=== PATIENT | male | born 1950 | race Asian ===

== ENCOUNTER 2024-10-01 08:33 | Inpatient (IN) | payer MEDICARE, BC ==
[~2024-10-01] VITALS: Ht 170.2 cm; Wt 78.9 kg
[2024-10-01] VITALS (7 sets, daily range): BP systolic 112–129; BP diastolic 72–80; PULSE 67–80; RESP 15–20; TEMP 97.9–98.4; O2SAT 95–99
--- NOTE | 2024-10-01 09:18 | ED.PDOC ---
History of Present Illness HPI Comments 73 y/o M, with a Hx of HTN and left-left lobectomy, presents with c/o right ankle pain and deformity w/associated limited range of motion s/p mechanical slip and fall injury, today. Patient endorses on injuring and "dislocating" his right ankle after slipping on a patch of ice, while attempting to enter his car, this morning. Patient admits to hearing a "snap" emanating from his right ankle and 1x failed attempt at trying to "put [his] ankle back into place." He reports pain whenever putting his weight on his right foot. He denies any prior injuries or symptoms before fall along with any additional pertinent or relevant Hx. He denies having any head or additional injuries, weakness, numbness, tingling, radiating pain, or other associated symptoms or modifiers at this time. Chief Complaint: Lower Extremity Time Seen by MD: 09:00 Reviewed Notes: Nurses Notes, Medications, Allergies Allergies: Coded Allergies: NO KNOWN ALLERGIES (Unverified , 10/01/24) Information Source: Patient Mode of Arrival: Wheelchair Severity: Moderate Timing: Hours Duration: Since onset Prehospital treatment: None Past Medical History PAST MEDICAL HISTORY: HTN Surgical History (Other): left lobectomy s/p lung lesion discovery Family History Family History: Unknown Social History Smoker: Non-Smoker Alcohol: Denies ETOH Use Drugs: Denies Drug Use Lives In: Home Musculoskeletal: reports: others (right ankle pain and deformity with associated limited range of motion ) All Other Systems: Reviewed and Negative (negative unless otherwise stated above or in HPI) Physical Exam General Appearance: Mild Distress, Moderate Distress HEENT: Normal ENT Inspection, PERRL/EOMI Neck: Full Range of Motion, Non-Tender, Normal, Normal Inspection Respiratory: Chest Non-Tender, Lungs Clear, No Accessory Muscle Use, No Respiratory Distress, Normal Breath Sounds Cardiovascular: No Edema, No JVD, No Murmur, No Gallop, Normal Peripheral Pulses, Regular Rate/Rhythm Breast Exam: Deferred Gastrointestinal: No Organomegaly, Non Tender, No Pulsatile Mass, Normal Bowel Sounds, Soft Genitalia: Deferred Pelvic: Deferred Rectal: Deferred Extremities: Decreased range of motion, No pedal edema, Swelling, Tender Musculoskeletal : Location: Right Extremity Location: Ankle Apperance: Swelling, Deformity, Limited ROM, Tenderness: Moderate Neurologic: Alert, habilitative interventionist II-XII nml as Tested, No Motor Deficits, Normal Affect, Normal Mood, No Sensory Deficits Cerebellar Function: Normal Reflexes: Normal Skin: Dry, Normal Color, Warm Peripheral Pulses: 1+ carotid (R), 1+ carotid (L) Lymphatic: No Adenopathy Was a procedure done? Was a procedure done?: No Differential Dx Considerations may include: dislocation, fracture, contusion, bruising, sprain, musculoskeletal pain X-Ray, Labs, Meds, VS Vital Signs Date Time Temp Pulse Resp B/P (MAP) Pulse Ox O2 Delivery O2 Flow Rate FiO2 10/01/24 08:53 98.6 82 18 140/72 (94) 98 X-Ray, Labs, Meds, VS Comment Course in the emergency department eventful patient slipped and fell and heard a crack and showed that his ankle was displaced so he reduced himself The x-ray shows bile duct malleolar fracture with a subluxation The orthopedics has been consulted and patient may go to surgery soon Time of 1ST Reevaluation: 09:30 Reevaluation 1ST: Unchanged Patient Education/Counseling: Diagnosis, Treatment Family Education/Counseling: No Family Present Departure 1 Departure Time of Disposition: 09:29 Impression: Primary Impression: Fracture dislocation of right ankle Qualified Codes: S82.891A - Other fracture of right lower leg, initial encounter for closed fracture Additional Impression: Bimalleolar fracture of right ankle Qualified Codes: S82.841A - Displaced bimalleolar fracture of right lower leg, initial encounter for closed fracture Disposition: ADMITTED INPATIENT Admit to: Med Surg Condition: Serious Critical Care Note Critical Care Time?: No Stability Stability form required: Yes Comments Patient admitted by orthopedist for repair ankle fracture Heart Score Heart Score: Heart Score Response (Comments) Value History N/A 0 EKG N/A 0 Age >65 2 Risk Factors No known risk factors 0 Troponin N/A 0 Total 2 I personally scribed for PIERRE BOWDEN MD ([email or web address]) on 10/01/24 at 09:18. Electronically submitted by Raghavendra Persaud ([email or web address]). PIERRE BOWDEN MD Oct 01, 2024 09:18
--- NOTE | 2024-10-01 09:37 | DVH ---
CLINICAL INDICATION: fx dislocation TECHNIQUE: XY R ANKLE 3 VIEW Comparison: None FINDINGS/IMPRESSION: Displaced lateral malleolus and medial malleolus fractures with overlying soft tissue swelling. Moder ate joint effusion is present.
[2024-10-01] MEDS ORDERED: HYDROcodone-ACET 5/325MG TAB PO PRN (09:45)
[2024-10-01] MEDS ORDERED: MORPHINE SULFATE 4 MG/ML SYR/VIAL IV ONE (09:45)
[2024-10-01] MEDS ORDERED: ONDANSETRON HCL 4 MG/2 ML VIAL IV ONE (09:45)
[2024-10-01] MEDS ORDERED: TEMAZEPAM 15 MG CAP PO PRN (09:45)
[2024-10-01] MEDS ORDERED: MAALOX PLUS or MAALOX 30 ML PO PRN (09:45)
[2024-10-01] MEDS ORDERED: SODIUM CHLORIDE 0.9% 1,000 ML IV ONE (09:45)
--- NOTE | 2024-10-01 09:50 | DVHHP2 ---
History of Present Illness Reason for Visit: RIGHT ANKLE FRACTURE History of Present Illness Patient is a 73 year-old M with a PMhx of HTN and left lobectomy (5 years ago) who slipped and fell in his driveway this morning. Patient was complaining of pain 8/10 initially. Denies any head injury, LOC, or Hip or Pelvic pain. Patient landed on his right ankle, he reports he tried to manipulate it back in place then came to the ED. Patient seen and examined at bedside3, Ortho consult was done in the ED. Patient will be admitted for Right Ankle Surgery. Past Medical History See HPI Review of Systems Constitutional: No: Fever, Chills, Sweats, Weakness, Malaise, Other Eyes: No: Pain, Vision change, Conjunctivae inflammation, Eyelid inflammation, Other, Redness ENT: No: Ear pain, Ear discharge, Nose pain, Nose discharge, Nose congestion, Mouth pain, Mouth swelling, Throat pain, Throat swelling, Other Respiratory: No: Cough, Dry, Shortness of breath, SOB with excertion, Wheezing, Hemoptysis, Pleuritic Pain, Sputum, Wheezing, Other Cardiovascular: No: Chest Pain, Palpitations, Orthopnea, Paroxysmal Noc. Dyspnea, Edema, Lt Headedness, Other Gastrointestinal: No: Nausea, Vomiting, Abdominal Pain, Diarrhea, Constipation, Melena, Hematochezia, Other Genitourinary: No Dysuria, No Frequency, No Incontinence, No Hematuria, No Retention, No Other Musculoskeletal: leg pain, foot pain Skin: No: Rash, Lesions, Jaundice, Bruising, Other Neurological: No: Weakness, Numbness, Incoordination, Change in speech, Confusion, Seizures, Other Allergies: Coded Allergies: NO KNOWN ALLERGIES (Unverified , 10/01/24) Exam Vital Signs Vital Signs Date Time Temp Pulse Resp B/P (MAP) Pulse Ox O2 Delivery O2 Flow Rate FiO2 10/01/24 08:53 98.6 82 18 140/72 (94) 98 General Appearance: Alert, Oriented X3, Cooperative, mild distress HEENT: Atraumatic, PERRLA, EOMI Respiratory: Clear to auscultation Cardiovascular: Regular rate, Normal S1, Normal S2 Abdominal: Normal bowel sounds, Soft Extremities: Other (Right Ankle Swelling, limited ROM) Skin: No rashes Psych/Mental Status: Mental status NL Assessment/Plan Assessment/Plan # Right Ankle Fracture - Preop Clearance - Ortho Consult for Surgery - Pain Control # Hypertension - Resume Valsartan and HCTZ - Monitor and adjust meds Plan discussed with: Patient, Spouse My Orders Orders - VIPUL SANDS MD Procedure Category Date Status Time Admit ADMIT 10/01/24 Transmitted 09:41 Code Status CODE 10/01/24 Transmitted 09:41 Vital Signs [facility] 10/01/24 Transmitted 09:41 Review Orders With ELIEZER 10/01/24 Transmitted 09:41 Sodium Chloride Lock [facility] 10/01/24 Verified (Saline Lock Ns) 14:00 Alum & Mag [facility] 10/01/24 Verified Hydrox-Simethicone 09:45 Acetaminophen Tablet [facility] 10/01/24 Verified (Tylenol Tablet) 09:45 Temazepam (Restoril) [facility] 10/01/24 Verified 09:45 Notify Md Of Changes [facility] 10/01/24 Verified From Base 09:41 Advance Directive [facility] 10/01/24 Verified 09:41 Echo 2d Mode Cardiac US 10/01/24 Verified DOP 09:41 Urinalysis LAB 10/01/24 Verified 09:41 Patient Condition ORDERS 10/01/24 Verified 09:41 Allergies [facility] 10/01/24 Verified 09:41 Hydrocodone-Acet [facility] 10/01/24 Verified 5/325mg Tab (Colon 09:45 Ondansetron Hcl [facility] 10/01/24 Verified (Zofran) 09:45 Morphine 2mg Iv Q4hprn [facility] 10/01/24 Verified 09:45 Regular Diet DIET 10/01/24 Verified Lunch Date of Service: Oct 01, 2024 Billing Provider: VIPUL SANDS MD Common Visit Codes: 31086-[id number] INP/OBS CARE (MOD) VIPUL SANDS MD Oct 01, 2024 09:50
--- NOTE | 2024-10-01 10:33 | DVH ---
EXAM: XY CHEST TWO VIEWS ROUTINE CLINICAL HISTORY: Preop COMPARISON: None TECHNIQUE: Frontal and lateral view of the chest was obtained FINDINGS: Lines and Tubes: None Lungs: No focal consolidation. Pleura: No effusion. No pneumothorax. Cardiomediastinal contours: Unremarkable Pulmonary vasculature: Within normal limits. Bones: No acute osseous abnormality. IMPRESSION: 1. No acute cardiopulmonary disease. HS:Y
--- NOTE | 2024-10-01 10:36 | DVH ---
CLINICAL INDICATION: Trauma, pain , fall TECHNIQUE: 2 XY PELVIS AP Comparison: None FINDINGS/IMPRESSION: : There is no evidence of acute fracture or dislocation. Soft tissues are unremarkable. Moderate degenerative changes of bilateral hips, [id number].
--- NOTE | 2024-10-01 10:40 | DVH ---
Procedure: CT CHEST WITHOUT CONTRAST Reason for study/Clinical History: Chest pain. Comparison Study: None. Exam Date: 10/01/2024 10:04 AM TECHNIQUE: Multidetector CT of the chest was performed from the lung apices to the upper abdomen with out the use of intravenous contract. Axial, coronal and sagittal multiplanar reformats were performed . Radiation Dose Information: CT Dose: CTDI volume is 9.06 mGy. Dose-length product is 353.35 mGy*cm The dose indicators for CT are the volume Computed Tomography (CT) Dose Index (CTDIvol) and the Dose Length Product (DLP), and are measured in units of mGy and mGy-cm, respectively. These indicators are not patient dose, but values generated from the CT scanner acquisition factors. The report includes radiation exposure data for exposures received during this examination. Radiation optimization: All CT scans at this facility use at least one of these dose optimization eliana hniques: automated exposure control mA and/or kV adjustment per patient size (includes targeted exam s where dose is matched to clinical indication) or iterative reconstruction. FINDINGS Lungs: There is a nonspecific 4 mm subpleural nodule in the right lung base posterior sulcus. There i s no evidence of a pulmonary mass or area of lung consolidation. The central airways are clear. There is no pleural effusion or pneumothorax. Heart/Vascular Structures: Normal heart size. No pericardial effusion. Lymph Nodes: There are no pathologically enlarged mediastinal lymph nodes. There are bilateral subcen timeter axillary lymph nodes, some of which are borderline in size measuring up to 8-9 mm. Musculoskeletal: No acute osseous abnormality. Soft tissues: Unremarkable. Upper abdomen: Visualized solid abdominal viscera grossly appears unremarkable. IMPRESSION: 1. Nonspecific 4 mm subpleural nodule in the right lung base posterior sulcus. Continued low-dose CT surveillance in 12 months is recommended to evaluate stability. 2. There are bilateral subcentimeter axillary lymph nodes, some of which are borderline in size measu ring up to 8-9 mm. The etiology is nonspecific. These may represent reactive lymph nodes. Clinical correlation is recommended. HS:Y
[2024-10-01] MEDS ORDERED: ATOR10TA PO (11:00)
[2024-10-01] MEDS ORDERED: ASPI1TAB20 PO (11:00)
[2024-10-01] MEDS ORDERED: VALS320T PO (11:00)
[2024-10-01] MEDS ORDERED: HYDR25TA4 PO (11:00)
[2024-10-01 11:12] LABS: Basophils # (auto) 0 10 ^3/uL (0-0.2); Basophils % (auto) 0.2 % (0.0-2.0); Eosinophils # (auto) 0 10 ^3/uL (0-0.8); Eosinophils % (auto) 0.3 % (0.0-7.0); Hematocrit 40.9 % (41.0-53.0); Hemoglobin 13.4 g/dL (13.5-17.5); Lymphocytes # (auto) 1.5 10 ^3/uL (0.4-5.4); Lymphocytes % (auto) 19.1 % (10.0-50.0); Mean Corpuscular Hemoglobin 29.6 pg (28.0-32.0); Mean Corpuscular Hgb Conc. 32.7 g/dL (32.0-36.0); Mean Corpuscular Volume 90.4 fL (80.0-100.0); Monocytes # (auto) 0.5 10 ^3/uL (0-1.3); Monocytes % (auto) 6.4 % (0.0-12.0); Neutrophils # (auto) 5.7 10 ^3/uL (1.6-8.6); Nucleated Red Blood Cells % 0.1 %; Platelet Count (auto) 83 10^3/uL (140-450); Red Blood Cells 4.53 10^6/uL (4.5-5.90); Red Cell Distribution Width 15.1 % (11.8-14.3); White Blood Cell 7.7 10^3/uL (4.4-10.8)
[2024-10-01 11:27] LABS: INR 1.18 (0.9-1.15); Partial Thromboplastin Time 23.3 SEC (24.5-34.5); Prothrombin Time 12.4 sec (9.3-11.8)
--- NOTE | 2024-10-01 11:28 | DVHINCON2 ---
Date Seen: Oct 01, 2024 Referring Physician MD Efra Reason for Consultation Cardiac risk stratification History of Present Illness This is a 73-year-old male patient who presents to the emergency room status post mechanical fall with right ankle pain. Per the patient, he was walking to his car to go to work when he slipped on some ice. He reports that he unsuccessfully attempted to put his ankle back in place. He decided to come to emergency room for further evaluation. Imaging has revealed a displaced lateral malleolus and medial malleolus fracture. Cardiology has now been consulted for cardiac risk stratification pending orthopedic surgery. Initial twelve lead electrocardiogram reveals normal sinus rhythm without any significant ST segment changes (artifact). The patient denies any cardiac symptoms such as chest pain, shortness breath, or palpitations. Significant past medical history includes hypertension, dyslipidemia, and left lobectomy X 5 years ago. The patient reports a recent visit three weeks ago with compression molding machine setter Dr. Willett where he underwent a Cardiolite stress test and echocardiogram and reports "everything came back normal". Past Medical History Past medical history reviewed. No other significant than mentioned above. Past Surgical History Left lobectomy X 5 years ago Family History: Patient reports no known family medical history. Family History Family history reviewed. Social History Denies the use of tobacco, alcohol or illicit drugs. Allergies: Coded Allergies: NO KNOWN ALLERGIES (Unverified , 10/01/24) Home Meds Reported Medications Aspirin (Aspir-81) 81 Mg Tab, 1 TAB PO DAILY, #30 TAB 5 Refills 10/01/24 Atorvastatin Calcium (Lipitor) 10 Mg Tab, 1 TAB PO QPM, #90 TAB 1 Refill 10/01/24 Hydrochlorothiazide (Hydrochlorothiazide) 25 Mg Tab, 1 TAB PO DAILY, #30 TAB 5 Refills 10/01/24 Valsartan (Diovan) 320 Mg Tab, 160 MG PO DAILY, TAB 10/01/24 Home Meds Home medications reviewed. Current Medications Current Medications Medications (Trade) Dose Ordered Sig/Luther Route PRN Reason Start Time Stop Time Status Last Admin Sodium Chloride (Saline Lock Ns) 10 ml Q8HR IV 10/01/24 14:00 Al Hydrox/Mg Hydrox/Simethicone (Maalox Plus) 30 ml Q6HP PRN PO FOR STOMACH DISTRESS 10/01/24 09:45 Acetaminophen (Tylenol Tablet) 650 mg Q6HP PRN PO PAIN SCALE 1-3 OR TEMP>100.4 10/01/24 09:45 Temazepam (Restoril) 15 mg QHSP PRN PO FOR INSOMNIA 10/01/24 09:45 Acetaminophen/ Hydrocodone Bitart (Montgomery 5/325MG Tab) 1 tab Q4HP PRN PO MODERATE PAIN (4-6 PAIN SCALE) 10/01/24 09:45 Ondansetron HCl (Zofran) 4 mg Q4HP PRN IV NAUSEA / VOMITING 10/01/24 09:45 Morphine Sulfate 2 mg Q4HPRN PRN IV SEVERE PAIN (7-10 PAIN SCALE) 10/01/24 09:45 Review of Systems Constitutional: No symptom reported Ears, Nose, & Throat: No symptom reported Eyes: No symptom reported Neurological: No symptoms reported Pulmonary/Respiratory: No symptoms reported Cardiovascular: No symptom reported Gastrointestinal: No symptom reported Genitourinary: No symptom reported Musculoskeletal: Right ankle pain Skin: No symptom reported Psychiatric: No symptom reported Endocrine: No symptom reported Hematologic/Lymphatic: No symptom reported Vital Signs Vital Signs Date Time Temp Pulse Resp B/P (MAP) Pulse Ox O2 Delivery O2 Flow Rate FiO2 10/01/24 10:43 98.0 67 16 128/78 (95) 98 98.0 10/01/24 09:57 Room Air* 0 21 Physical Exam General Appearance: Cooperative. Well-developed. Well-nourished. No acute distress. Pulmonary/Respiratory: Clear, bilateral breaths sounds. Cardiovascular/Chest: Regular rate and rhythm. Peripheral Pulses: 2+ Radial (R). 2+ Radial (L). 2+ Pedal (R). 2+ Pedal (L) Abdominal Exam: Normal bowel sounds. Ankle Exam: Negative ankle edema Lower extremities: Negative lower extremity edema Neuro/Mental Status: A/OX4, coherent. Thoughts/Psych: Normal thought pattern. Appropriate mood and affect. Good judgment and insight. Appearance: No acute distress. Skin Exam: Normal inspection. Normal color. Warm and dry. Labs/Diagnostic Data Labs Test 10/01/24 11:02 Range/Units White Blood Count 7.7 4.4-10.8 10^3/uL Red Blood Count 4.53 4.5-5.90 10^6/uL Hemoglobin 13.4 L 13.5-17.5 g/dL Hematocrit 40.9 L 41.0-53.0 % Mean Corpuscular Volume 90.4 80.0-100.0 fL Mean Corpuscular Hemoglobin 29.6 28.0-32.0 pg Mean Corpuscular Hemoglobin Concent 32.7 32.0-36.0 g/dL Red Cell Distribution Width 15.1 H 11.8-14.3 % Platelet Count 83 L 140-450 10^3/uL Mean Platelet Volume 10.8 6.9-10.8 fL Neutrophils (%) (Auto) 74.0 37.0-80.0 % Lymphocytes (%) (Auto) 19.1 10.0-50.0 % Monocytes (%) (Auto) 6.4 0.0-12.0 % Eosinophils (%) (Auto) 0.3 0.0-7.0 % Basophils (%) (Auto) 0.2 0.0-2.0 % Neutrophils # (Auto) 5.7 1.6-8.6 10 ^3/uL Lymphocytes # (Auto) 1.5 0.4-5.4 10 ^3/uL Monocytes # (Auto) 0.5 0-1.3 10 ^3/uL Eosinophils # (Auto) 0 0-0.8 10 ^3/uL Basophils # (Auto) 0 0-0.2 10 ^3/uL Nucleated Red Blood Cells 0.1 % Prothrombin Time 12.4 H 9.3-11.8 sec Prothrombin Time INR 1.18 H 0.9-1.15 Activated Partial Thromboplast Time 23.3 L 24.5-34.5 SEC Assessment Preprocedural cardiovascular examination Displaced lateral and medial malleolus fracture Hypertension Dyslipidemia Aortic and tricuspid valve regurgitation, mild degree Left lobectomy Plan/Recommendation (Dr. Herrera): Transthoracic echocardiogram reveals EF 55%, RVSP 40mmHg. Revised cardiac risk index (Mic criteria): 0 points (3.9% risk of major cardiac event). There is no underlying history of congestive heart failure, coronary artery disease, or equivalent of cardiac symptoms. Prior to admission, the patient reports a good functional capacity and states he is generally fairly active. Per Cardiology standpoint, the patient is at an acceptable risk for moderate risk surgery. No additional cardiac workup indicated prior to surgery. Thank you for allowing us to care for this patient. Please call with any questions or concerns. Critical care time spent: 40 minutes This medical document was created using an electronic medical record system with voice recognition software and computerized dictation system. Although this document has been carefully reviewed, there might still be some phonetic and typographical errors. Occasional wrong-word or ``sound-alike substitutions may have occurred due to the inherent limitations of voice recognition software. These areas are purely typographical due to imperfections of the software programs and do not reflect any compromise in the patient's medical care. Please read the chart carefully and recognize, using context, where these substitutions have occurred. Plan discussed with: Patient Date of Service: Oct 01, 2024 Billing Provider: ABDIEL HERRERA MD Cardiology Common Codes: 86778-[id number] INP/OBS CARE (High) Cardiology Consultation Codes: 78224-[id number] CONSULT <45MIN LUIS FRANCISCO Oct 01, 2024 11:28
[2024-10-01] MEDS: ACETAMINOPHEN 325 MG TAB PO PRN (11:30)
[2024-10-01 11:31] LABS: Alkaline Phosphatase 76 U/L (46-116); Anion Gap 5 (5-15); BUN/Creatinine Ratio 26.3 (10.0-20.0); Blood Urea Nitrogen 21 mg/dL (9-23); Calcium 10.1 mg/dL (8.7-10.4); Carbon Dioxide 28 mmol/L (20-31); Magnesium 1.9 mg/dL (1.6-2.6); Potassium 3.9 mmol/L (3.5-5.1); Sodium 141 mmol/L (136-145)
[2024-10-01 11:32] LABS: Bilirubin, Total 0.8 mg/dL (0.2-1.0)
[2024-10-01 11:35] LABS: Alanine Aminotransferase 95 U/L (7-40); Aspartate Aminotransferase 63 U/L (13-40); Chloride 108 mmol/L (98-107); Glucose 120 mg/dL (74-106)
[2024-10-01 12:08] LABS: Urine Bacteria None Seen /hpf (None Seen)
[2024-10-01 12:18] LABS: Urine Blood Negative /uL (Negative); Urine Clarity Clear (Clear); Urine Color Yellow (Yellow); Urine Protein, UAD Negative (Negative); Urine Specific Gravity 1.015 (1.001-1.035); Urine Urobilinogen Normal (Negative); Urine WBC <1 /hpf (0 - 3); Urine pH 5.5 (5.0-9.0)
[2024-10-01 12:21] LABS: Basophils # (auto) 0 10 ^3/uL (0-0.2); Basophils % (auto) 0.1 % (0.0-2.0); Eosinophils # (auto) 0 10 ^3/uL (0-0.8); Eosinophils % (auto) 0.3 % (0.0-7.0); Lymphocytes # (auto) 2.1 10 ^3/uL (0.4-5.4); Lymphocytes % (auto) 20.2 % (10.0-50.0); Mean Corpuscular Hemoglobin 30.1 pg (28.0-32.0); Mean Corpuscular Hgb Conc. 33.2 g/dL (32.0-36.0); Mean Corpuscular Volume 90.6 fL (80.0-100.0); Monocytes # (auto) 0.6 10 ^3/uL (0-1.3); Monocytes % (auto) 5.8 % (0.0-12.0); Neutrophils # (auto) 7.7 10 ^3/uL (1.6-8.6); Neutrophils % (auto) 73.6 % (37.0-80.0); Nucleated Red Blood Cells % 0.1 %; Red Blood Cells 4.64 10^6/uL (4.5-5.90); Red Cell Distribution Width 15.2 % (11.8-14.3); White Blood Cell 10.5 10^3/uL (4.4-10.8)
--- NOTE | 2024-10-01 12:57 | DVHSR ---
APPROVED REPORT EXAM: Two-dimensional and M-mode echocardiogram with Doppler and color Doppler. Blood Pressure: 140/72 mmHg INDICATION Pre-Op RISK FACTORS Height: 5' 7", Weight: 158 DIMENSIONS LVDd4.7 (3.8-5.7cm)LA (2D)3.3 (1.9-4.0cm)Aortic Root3.4 (2.0-3.7cm) LVDs3.0 (2.5-4.0cm)LA (MM) (1.9-4.0cm)Aortic Cusp Exc1.6 (1.5-2.0cm) EF (%) 65.0 (55-70%)Rt. Atrium3.6 (1.9-4.0cm)Asc. Aorta cm IVSd1.0 (0.7-1.1cm)RV (D) (1.8-2.4cm) PWd1.1 (0.7-1.1cm) Mitral Valve MitralMitral Stenosis E wave0.60m/sMV Mean GR.mmHg A wave1.00m/sMV Peak GR.mmHg E/A ratio0.62D MVAcm2 Aortic Valve Aortic ValveAortic Stenosis V10.90m/Arlet Mean GR.4mmHg V21.40m/Arlet Peak GR.9mmHg LVOT Diameter2.2 (1.8-2.4cm)Doppler AVA2.44cm2 AI P 1/2 Nbas232.20ms Pulmonic Valve V20.50m/s Tricuspid Valve TR Velocity3.00m/s [id number] Conclusion Normal left ventricular size and dimension. Normal left ventricular systolic function estimated ejec tion fraction 55%. There is a grade 1 diastolic dysfunction. Normal right ventricular size and dimension. Normal right ventricular systolic function. Mild-to-mo derately elevated right ventricular systolic pressure 40 mm of mercury. Normal biatrial size and dimension. The aortic valve is mildly thickened and sclerotic there is mild aortic valve regurgitation. Normal mitral valve structure and function. There is mild tricuspid valve regurgitation. The pulmonary valve is grossly normal. No pericardial effusion.
[2024-10-01] MEDS: SODIUM CHLOR 0.9% PF (SALINE LOCK) 10ML VIAL/SYR IV SCH (14:00)
--- NOTE | 2024-10-01 14:14 | DVH ---
INDICATION: thrombocytopenia TECHNIQUE: Multiple real-time sonographic images were obtained of the right upper quadrant. COMPARISON: None FINDINGS: The liver demonstrates slightly increased echogenicity without focal mass lesions. The live r measures 13.4 cm. There is no intrahepatic or extrahepatic ductal dilatation. The common duct myrna ures 5 mm. The gallbladder is without evidence of stone or sludge. The gallbladder wall measures 1 mm and is wi thin normal limits. Residential Construction Instructor notes a negative sonographic Manuel's sign. The right kidney measures 9.9 cm. The right kidney is normal in contour, size, and shape. The echog enicity is normal. There is no hydronephrosis. The pancreas is not well visualized due to overlying bowel gas. IMPRESSION: 1. Nonspecific increased echogenicity of the liver, most commonly seen in the setting of hepatic stea tosis, though other diffuse hepatocellular etiologies can have similar appearance. HS:Y
[2024-10-01] MEDS: LACTATED RINGER'S 1,000 ML IV SCH (16:41)
[2024-10-01 17:05] LABS: Giant Platelets Few; Large Platelets MOD
[2024-10-01 17:06] LABS: Platelet Estimate Decreased
[2024-10-01 17:17] LABS: Platelet Count (auto) 136 10^3/uL (140-450)
--- NOTE | 2024-10-01 17:52 | DVHINCON2 ---
Date of service: Oct 01, [address] Kraus Reason for Consultation Thrombocytopenia with fatty liver History of Present Illness 73 years old [place] gentleman who has a history of hypertension, high cholesterol. Has a history of left lobectomy for adenocarcinoma of the lung five years back without any adjuvant treatment He slipped and fell in his driveway which was IC this morning and came in with pain in the right ankle Ankle x-ray showed displaced lateral malleolus and medial malleolus fractures with overlying soft tissue swelling. Moderate joint effusion CT of the chest without contrast showed nonspecific 4 mm subpleural nodule in the right lung base posterior sulcus. Follow up recommended in 12 months There are bilateral subcentimeter axillary lymph nodes some of which are borderline in size up to 8-9 mm the etiology is nonspecific. This may represent reactive lymph nodes Hepatic ultrasound showed nonspecific increased echogenicity of the liver most commonly seen in the setting of hepatic steatosis, though other diffuse hepatocellular etiologies can have similar appearance I am consulted for thrombocytopenia. The CBC from today showed a white count of 10.5 hemoglobin 14 MCV 90.6 [place] [id number] with a normal differential confirmed on the blood smear Normal renal functions. AST 63 ALT 95 total bili 0.8 calcium 10.1 total protein six albumin four vitamin-D is 42.1 TSH 1.63 hemoglobin A1c 6.7 Past Medical History Hypertension High cholesterol Lung cancer and surgery five years back Family History: Patient reports no known family medical history. Family History Daughter has thrombocytopenia Social History No smoking drinking or drugs Allergies: Coded Allergies: NO KNOWN ALLERGIES (Unverified , 10/01/24) Home Meds Reported Medications Aspirin (Aspir-81) 81 Mg Tab, 1 TAB PO DAILY, #30 TAB 5 Refills 10/01/24 Atorvastatin Calcium (Lipitor) 10 Mg Tab, 1 TAB PO QPM, #90 TAB 1 Refill 10/01/24 Hydrochlorothiazide (Hydrochlorothiazide) 25 Mg Tab, 1 TAB PO DAILY, #30 TAB 5 Refills 10/01/24 Valsartan (Diovan) 320 Mg Tab, 160 MG PO DAILY, TAB 10/01/24 Current Medications Current Medications Medications (Trade) Dose Ordered Sig/Luther Route PRN Reason Start Time Stop Time Status Last Admin Sodium Chloride (Saline Lock Ns) 10 ml Q8HR IV 10/01/24 14:00 10/01/24 14:00 Al Hydrox/Mg Hydrox/Simethicone (Maalox Plus) 30 ml Q6HP PRN PO FOR STOMACH DISTRESS 10/01/24 09:45 Acetaminophen (Tylenol Tablet) 650 mg Q6HP PRN PO PAIN SCALE 1-3 OR TEMP>100.4 10/01/24 09:45 12 11:30 Temazepam (Restoril) 15 mg QHSP PRN PO FOR INSOMNIA 10/01/24 09:45 Acetaminophen/ Hydrocodone Bitart (Raymond 5/325MG Tab) 1 tab Q4HP PRN PO MODERATE PAIN (4-6 PAIN SCALE) 10/01/24 09:45 Ondansetron HCl (Zofran) 4 mg Q4HP PRN IV NAUSEA / VOMITING 10/01/24 09:45 Morphine Sulfate 2 mg Q4HPRN PRN IV SEVERE PAIN (7-10 PAIN SCALE) 10/01/24 09:45 Lactated Ringer's 1,000 ml @ 75 mls/hr [id number] IV 10/01/24 12:30 10/01/24 16:41 Vital Signs Vital Signs Date Time Temp Pulse Resp B/P (MAP) Pulse Ox O2 Delivery O2 Flow Rate FiO2 10/01/24 16:43 98.4 74 16 122/79 (93) 96 98.4 10/01/24 10:29 Room Air* 0 21 Physical Exam Moderately built and nourished, in no acute distress, alert and oriented. No jaundice Head and neck: Unremarkable for any masses or neck nodes. No conjunctival or mucosal hemorrhage Lungs: Clear Cardiovascular: S1-S2 heard well Abdomen: No organomegaly, tenderness or ascites. Bowel sounds are present. Extremities: No clubbing edema cyanosis or calf tenderness. Skin: Unremarkable for petechia purpura ecchymosis Lymphadenopathy: None Neurological exam: No focal deficit Right ankle is in a splint Labs/Diagnostic Data Labs Test 10/01/24 12:02 10/01/24 12:00 10/01/24 11:02 Range/Units Urine Color Yellow Yellow Urine Clarity Clear Clear Urine pH 5.5 5.0-9.0 Urine Specific [place] 1.015 1.001-1.035 Urine Protein Negative Negative Urine Ketones Negative Negative Urine Blood Negative Negative /uL Urine Nitrite Negative Negative Urine Bilirubin Negative Negative Urine Urobilinogen Normal Negative mg/dL Urine Leukocyte Esterase Negative Negative /uL Urine RBC 5 0 - 3 /hpf Urine WBC <1 0 - 3 /hpf Urine Squamous Epithelial Cells None seen <5 /hpf Urine Bacteria None seen None Seen /hpf Urine Glucose Normal Normal mg/dL White Blood Count 10.5 # 4.4-10.8 10^3/uL Red Blood Count 4.64 4.5-5.90 10^6/uL Hemoglobin 14.0 13.5-17.5 g/dL Hematocrit 42.0 41.0-53.0 % Mean Corpuscular Volume 90.6 80.0-100.0 fL Mean Corpuscular Hemoglobin 30.1 28.0-32.0 pg Mean Corpuscular Hemoglobin Concent 33.2 32.0-36.0 g/dL Red Cell Distribution Width 15.2 H 11.8-14.3 % Platelet Count 136 #L 140-450 10^3/uL Mean Platelet Volume 11.7 H 6.9-10.8 fL Neutrophils (%) (Auto) 73.6 37.0-80.0 % Lymphocytes (%) (Auto) 20.2 10.0-50.0 % Monocytes (%) (Auto) 5.8 0.0-12.0 % Eosinophils (%) (Auto) 0.3 0.0-7.0 % Basophils (%) (Auto) 0.1 0.0-2.0 % Neutrophils # (Auto) 7.7 1.6-8.6 10 ^3/uL Lymphocytes # (Auto) 2.1 0.4-5.4 10 ^3/uL Monocytes # (Auto) 0.6 0-1.3 10 ^3/uL Eosinophils # (Auto) 0 0-0.8 10 ^3/uL Basophils # (Auto) 0 0-0.2 10 ^3/uL Nucleated Red Blood Cells 0.1 % Platelet Estimate Decreased Large Platelets Mod Giant Platelets Few Hemoglobin A1c 6.7 H <5.7 % A1C Thyroid Stimulating Hormone (TSH) 1.63 0.55-4.78 uIU/mL Prothrombin Time 12.4 H 9.3-11.8 sec Prothrombin Time INR 1.18 H 0.9-1.15 Activated Partial Thromboplast Time 23.3 L 24.5-34.5 SEC Sodium Level 141 136-145 mmol/L Potassium Level 3.9 3.5-5.1 mmol/L Chloride Level 108 H 98-107 mmol/L Carbon Dioxide Level 28 20-31 mmol/L Anion Gap 5 5-15 Blood Urea Nitrogen 21 9-23 mg/dL Creatinine 0.80 0.700-1.30 mg/dL Glomerular Filtration Rate Calc 92 >90 mL/min BUN/Creatinine Ratio 26.3 H 10.0-20.0 Serum Glucose 120 H 74-106 mg/dL Calcium Level 10.1 8.7-10.4 mg/dL Magnesium Level 1.9 1.6-2.6 mg/dL Total Bilirubin 0.8 0.2-1.0 mg/dL Aspartate Amino Transferase (AST) 63 H 13-40 U/L Alanine Aminotransferase (ALT) 95 H 7-40 U/L Alkaline Phosphatase 76 46-116 U/L Total Protein 6.0 5.7-8.2 g/dL Albumin 4.0 3.2-4.8 g/dL Vitamin D 25-Hydroxy 42.1 30.0-100 ng/mL Assessment 1. Thrombocytopenia which could be multifactorial, secondary to fatty liver, ITP, anticholesterol medications and he has been on Zocor, his hepatitis panel is pending 2. Right lateral and medial malleolus fracture displaced 3. Hypertension (has been on losartan and hydrochlorothiazide 4. High cholesterol (has been on Zocor and baby aspirin Plan/Recommendation The [place] [address] should be an acceptable hematological risk for the ankle surgery and the spinal anesthesia We will check LDH H pylori VARUN double-stranded DNA T4 TSH Suggest repeating a CT of the chest with contrast in one year (4 mm lung nodule) Patient needs to discuss with his nursing education consultant about adjustment of his cholesterol medications especially with a fatty liver and the liver dysfunction The radiographically visible axillary lymph nodes need to be followed also May do a bone density as an outpatient Plan discussed with: Patient MARY LANDIN MD Oct 01, 2024 17:52
[2024-10-01] MEDS: MORPHINE SULFATE INJ 2 MG/ml SYRG IV PRN (20:08)
[2024-10-01] MEDS: HYDROmorphone HCL 2 MG/ML VL/or syr IV PRN (23:02)
[2024-10-02] VITALS (9 sets, daily range): BP systolic 93–130; BP diastolic 60–74; PULSE 69–87; RESP 15–19; TEMP 97.3–98.7; O2SAT 92–97
--- NOTE | 2024-10-02 06:00 | DVH ---
CLINICAL INDICATION: trauma to the right foot, fall TECHNIQUE: XY R FOOT 3 VIEW XRAY Comparison: None FINDINGS/IMPRESSION: : Overlying cast or bandages obscures bony and soft-tissue detail. No acute fracture or dislocation involving the foot. Partially imaged fracture of the distal tibia.
[2024-10-02 06:09] LABS: Basophils # (auto) 0 10 ^3/uL (0-0.2); Basophils % (auto) 0.2 % (0.0-2.0); Eosinophils # (auto) 0.1 10 ^3/uL (0-0.8); Eosinophils % (auto) 0.7 % (0.0-7.0); Hematocrit 38.2 % (41.0-53.0); Hemoglobin 12.8 g/dL (13.5-17.5); Lymphocytes # (auto) 2.1 10 ^3/uL (0.4-5.4); Lymphocytes % (auto) 22.6 % (10.0-50.0); Mean Corpuscular Hemoglobin 30.3 pg (28.0-32.0); Mean Corpuscular Hgb Conc. 33.7 g/dL (32.0-36.0); Mean Corpuscular Volume 89.9 fL (80.0-100.0); Monocytes # (auto) 0.6 10 ^3/uL (0-1.3); Monocytes % (auto) 6.7 % (0.0-12.0); Neutrophils # (auto) 6.6 10 ^3/uL (1.6-8.6); Neutrophils % (auto) 69.8 % (37.0-80.0); Nucleated Red Blood Cells % 0.1 %; Red Blood Cells 4.24 10^6/uL (4.5-5.90); Red Cell Distribution Width 14.8 % (11.8-14.3); White Blood Cell 9.5 10^3/uL (4.4-10.8)
[2024-10-02 07:05] LABS: Giant Platelets Few; Large Platelets FEW; Ovalocytes FEW
[2024-10-02 07:09] LABS: Platelet Count (auto) 108 10^3/uL (140-450); Platelet Estimate Decreased
[2024-10-02] MEDS: IOHEXOL 300 MG/ML 100ML BOTTLE IJ ONE (08:24)
--- NOTE | 2024-10-02 08:26 | DVHPN2 ---
Progress Note - Dictate Date Seen: Oct 02, 2024 Has the PT tested + for MRSA If YES, has PT been informed?: Yes Medical Necessity Reason Pt with a Central, PICC or Fol: No Subjective No new complaints. Waiting for surgery vital signs Vital Sign Date Time Temp Pulse Resp B/P (MAP) Pulse Ox O2 Delivery O2 Flow Rate FiO2 10/02/24 05:42 78 17 120/78 10/02/24 05:00 98.1 94 98.1 10/01/24 20:00 Room Air* 0 21 Total Intake and Output 10/01/24 10/01/24 10/02/24 15:00 23:00 07:00 Intake Total 0 ml 0 ml 500 ml Output Total 550 ml 300 ml Balance 0 ml -550 ml 200 ml medications Current Medications Medications Dose Ordered Sig/Luther Route Start Time Stop Time Status Last Admin Dose Admin Sodium Chloride 10 ml Q8HR IV 10/01/24 14:00 10/01/24 14:00 10 ML Al Hydrox/Mg Hydrox/Simethicone 30 ml Q6HP PRN PO 10/01/24 09:45 Acetaminophen 650 mg Q6HP PRN PO 10/01/24 09:45 10/01/24 11:30 650 MG Temazepam 15 mg QHSP PRN PO 10/01/24 09:45 Acetaminophen/ Hydrocodone Bitart 1 tab Q4HP PRN PO 10/01/24 09:45 Ondansetron HCl 4 mg Q4HP PRN IV 10/01/24 09:45 Lactated Ringer's 1,000 ml @ 75 mls/hr [id number] IV 10/01/24 12:30 10/02/24 06:47 75 MLS/HR Hydromorphone HCl 1 mg Q4HPRN PRN IV 10/01/24 22:30 10/02/24 05:12 1 MG objective Head and neck: Unremarkable for any masses or neck nodes. Lungs: Clear Cardiovascular: Regular sinus rhythm Abdomen: No organomegaly, tenderness or ascites. Bowel sounds are present. Extremities: No clubbing edema cyanosis or calf tenderness. Skin: Unremarkable for petechia purpura ecchymosis Lymphadenopathy: None Right ankle in a splint laboratory and microbiology Laboratory Tests 10/02/24 05:10 10/01/24 11:02 Test 10/01/24 11:02 Range/Units Serum Glucose 120 H 74-106 mg/dL Assessment/Plan 1. Thrombocytopenia which could be multifactorial, secondary to fatty liver, ITP, anticholesterol medications and he has been on Zocor, his hepatitis panel is pending 10/02/2024: White count 9.5 hemoglobin 12.8 platelets 108 1000 confirmed on the blood smear B12 914, LDH 218 2. Right lateral and medial malleolus fracture displaced 3. Hypertension (has been on losartan and hydrochlorothiazide 4. High cholesterol (has been on Zocor and baby aspirin 5. History of adenocarcinoma of the lung and status post left lumpectomy The CT of the chest without contrast showed nonspecific 4 mm subpleural nodule in the right lung base Bilateral subcentimeter axillary lymph nodes some of which are borderline in size measuring up to 8-9 mm nonspecific Plan: The patient is hematologically an acceptable risk for the right ankle surgery and the spinal anesthesia His VARUN anti CCP anticardiolipin antibodies, hepatitis panel is pending CT of the chest with contrast to evaluate the lymph nodes Plan discussed with: Patient MARY LANDIN MD Oct 02, 2024 08:26
[2024-10-02 10:08] LABS: Hepatitis B Core Total AB Negative (Negative)
--- NOTE | 2024-10-02 10:21 | DVH ---
Procedure: CT CHEST WITH CONTRAST Reason for study/Clinical History: 73 years old, Male; Ax LN. Comparison Study: None available at time of dictation. Exam Date: 10/02/2024 08:48 AM Radiation Dose Information: CT Dose: CTDI volume is 10 mGy. Dose-length product is 324.26 mGy*cm Contrast: Type of contrast: Omni 300 Contrast inject: 100 cc TECHNIQUE: After the uneventful administration of intravenous contrast intravenously, CT imaging was performed through the chest. Coronal and sagittal reformations were performed by the technologist. FINDINGS: Lower Neck: Visualized portions of the thyroid gland are unremarkable. Aorta and Vasculature: Normal caliber of thoracic aorta. Lymph Nodes: Mildly prominent but subcentimeter bilateral axillary lymph nodes. Mediastinum: Heart size is normal. There is no pericardial effusion. The esophagus is unremarkable. Lungs: Mild atelectasis/ consolidation in the right lower lung. Musculoskeletal: No acute osseous abnormality. Upper abdomen: Limited portions of the upper abdomen are unremarkable. IMPRESSION: 1. Mildly prominent but subcentimeter bilateral axillary lymph nodes with retained fatty gregoria. If the re is high clinical concern consider further evaluation with ultrasound and possibly ultrasound-guide d biopsy. 2. New mild atelectasis and consolidation in the right lower lung. Clinical correlation and continued follow-up to resolution is recommended. 3. All CT scans at this medical facility are performed using dose modulation techniques as appropriat e to a performed exam including the following: Automated exposure control was utilized; Adjustment of the MA And/or KV according to patient size; And use of iterative reconstruction technique. HS:Y
[2024-10-02] MEDS: ONDANSETRON HCL 4 MG/2 ML VIAL IV PRN (10:38)
[2024-10-02] MEDS ORDERED: DexAMETHasone SOD PHOS 10MG/1ML VIAL INJ ONE ×2 (10:49→13:26)
[2024-10-02] MEDS ORDERED: ONDANSETRON HCL 4 MG/2 ML VIAL ONE (10:49)
[2024-10-02] MEDS ORDERED: LIDOCAINE 1% INJ PF 5ML AMP ONE (10:49)
[2024-10-02] MEDS ORDERED: PROPOFOL 10 MG/ML 20 ML IV ONE (10:49)
[2024-10-02] MEDS ORDERED: GLYCOPYRROLATE 0.2 MG/ML 1ML VIAL ONE (10:49)
[2024-10-02] MEDS ORDERED: KETOROLAC TROMETH 30 MG/ML 1ML VIAL ONE (10:49)
[2024-10-02 10:58] LABS: Hepatitis A Total Antibody Positive (Negative); Hepatitis B Surface Antibody Negative (Negative); Hepatitis B Surface Antigen Negative (Negative); Hepatitis C Antibody Negative (Negative)
[2024-10-02] MEDS: ceFAZolin 1GM/50ML 100 ML IV ONE (11:35)
--- NOTE | 2024-10-02 11:39 | DVHPN2 ---
Subjective Seen and examined at bedside, for surgery today by Dr. Lyons. Patient was seen in Heme Cx. Reviewed CT Chest, possible PNA? Start Doxy. Changes from previous H/P or p: No Changes Eyes: No Pain, No Vision change, No Conjunctivae inflammation, No Eyelid inflammation, No Other, No Redness ENT: No Ear pain, No Ear discharge, No Nose pain, No Nose discharge, No Nose congestion, No Mouth pain, No Mouth swelling, No Throat pain, No Throat swelling, No Other Cardiovascular: No Chest Pain, No Palpitations, No Orthopnea, No Paroxysmal Noc. Dyspnea, No Edema, No Lt Headedness, No Other Respiratory: No Cough, No Dry, No Shortness of breath, No SOB with excertion, No Wheezing, No Hemoptysis, No Pleuritic Pain, No Sputum, No Other Gastrointestinal: No Nausea, No Vomiting, No Abdominal Pain, No Diarrhea, No Constipation, No Melena, No Hematochezia, No Other Genitourinary: No Dysuria, No Frequency, No Incontinence, No Hematuria, No Retention, No Other Musculoskeletal: leg pain, foot pain Skin: No Rash, No Lesions, No Jaundice, No Bruising, No Other Objective Vitals Vital Signs Date Time Temp Pulse Resp B/P (MAP) Pulse Ox O2 Delivery O2 Flow Rate FiO2 10/02/24 09:00 98.5 84 16 126/74 (91) 94 98.5 10/01/24 20:00 Room Air* 0 21 Intake/Output Intake and Output 10/02/24 07:00 Intake Total 500 ml Output Total 850 ml Balance -350 ml Intake Oral 500 ml Output Urine Total 850 ml Stool Total 0 ml # Voids 4 General Appearance: Alert, Oriented X3, Cooperative, No acute distress HEENT: Atraumatic Lungs: Clear to auscultation Cardiovascular: Regular rate, Normal S1, Normal S2 Abdomen: Normal bowel sounds, Soft Extremities: Other (Right Ankle Swelling) Medications Current Medications Medications Dose Ordered Sig/Luther Route Start Time Stop Time Status Last Admin Dose Admin Sodium Chloride 10 ml Q8HR IV 10/01/24 14:00 10/01/24 14:00 10 ML Al Hydrox/Mg Hydrox/Simethicone 30 ml Q6HP PRN PO 10/01/24 09:45 Acetaminophen 650 mg Q6HP PRN PO 10/01/24 09:45 10/01/24 11:30 650 MG Temazepam 15 mg QHSP PRN PO 10/01/24 09:45 Acetaminophen/ Hydrocodone Bitart 1 tab Q4HP PRN PO 10/01/24 09:45 Ondansetron HCl 4 mg Q4HP PRN IV 10/01/24 09:45 10/02/24 10:38 4 MG Lactated Ringer's 1,000 ml @ 75 mls/hr [id number] IV 10/01/24 12:30 10/02/24 06:47 75 MLS/HR Hydromorphone HCl 1 mg Q4HPRN PRN IV 10/01/24 22:30 10/02/24 05:12 1 MG Laboratory Results Laboratory Tests 10/01/24 11:02 10/02/24 05:10 HgA1c, TSH Test 10/01/24 12:00 Hemoglobin A1c 6.7 % A1C (<5.7) H Thyroid Stimulating Hormone (TSH) 1.63 uIU/mL (0.55-4.78) Urinalysis Test 10/01/24 12:02 Urine Color Yellow (Yellow) Urine Clarity Clear (Clear) Urine pH 5.5 (5.0-9.0) Urine Specific [place] 1.015 (1.001-1.035) Urine Protein Negative (Negative) Urine Ketones Negative (Negative) Urine Blood Negative /uL (Negative) Urine Nitrite Negative (Negative) Urine Bilirubin Negative (Negative) Urine Urobilinogen Normal mg/dL (Negative) Urine Leukocyte Esterase Negative /uL (Negative) Urine RBC 5 /hpf (0 - 3) Urine WBC <1 /hpf (0 - 3) Urine Squamous Epithelial Cells None seen /hpf (<5) Urine Bacteria None seen /hpf (None Seen) Urine Glucose Normal mg/dL (Normal) Assessment/Plan Assessment/Plan # Transaminitis - Monitor - DC Statins # Thrombocytopenia - MOnitor, Heme Cx # DM2 A1c 6.9 - Monitor # Possible Gram Neg vs. Aspiration PNA?? - Doxy - Incentive Spirometer # Right Ankle Fracture - Preop Clearance - Ortho Consult for Surgery - Pain Control # Hypertension - Resume Valsartan and HCTZ - Monitor and adjust meds # Goals of care >17 mins FULL CODE Plan discussed with: Patient, Spouse My Orders Orders - VIPUL SANDS MD Procedure Category Date Status Time Abdomen Limited US 10/01/24 Resulted 13:33 Regular Diet DIET 10/01/24 Transmitted Dinner H. Pylori Urea Breath LAB 10/01/24 Logged Test 18:04 Hydromorphone PHA 10/01/24 In Process Injection (Dilaudid 22:30 Date of Service: Oct 02, 2024 Billing Provider: VIPUL SANDS MD Common Visit Codes: [id number] INP/OBS CARE(HIGH) VIPUL SANDS MD Oct 02, 2024 11:39
[2024-10-02] MEDS: CELECOXIB 100 MG CAP ONE (11:57)
[2024-10-02] MEDS: GABAPENTIN 300 MG CAP ONE (11:57)
[2024-10-02] MEDS: ACETAMINOPHEN IV 100 ML IV ONE (11:57)
[2024-10-02] MEDS: GABAPENTIN 300 MG CAP PO ONE (12:00)
[2024-10-02] MEDS ORDERED: ACETAMINOPHEN IV 1000 MG/100ML (10MG/ML) IV ONE (12:00)
[2024-10-02] MEDS: CELECOXIB 100 MG CAP PO ONE (12:00)
[2024-10-02] MEDS: BUPIVACAINE 0.25% INJ 50ML VIAL ONE (12:22)
[2024-10-02] MEDS: CEFEPIME 1GM/ 50ML 50 ML IV ONE (13:26)
[2024-10-02] MEDS: ceFAZolin 2 GM/D5W50ml 50 ML IV SCH (14:00)
[2024-10-02] MEDS ORDERED: ePHEDrine SULFATE 50 MG/ML AMP IV PRN (14:45)
[2024-10-02] MEDS ORDERED: HYDROmorphone HCL 2 MG/ML VL/or syr IV PRN (14:45)
[2024-10-02] MEDS ORDERED: oxyCODONE HCL 5MG TAB PO PRN (14:45)
[2024-10-02] MEDS ORDERED: NALOXONE HCL 0.4 MG/ML VIAL IV PRN (14:45)
[2024-10-02] MEDS ORDERED: FLUMAZENIL 0.1 MG/ML INJ 10ML MDV IV PRN (14:45)
[2024-10-02] MEDS ORDERED: ONDANSETRON HCL 4 MG/2 ML VIAL IV PRN (14:45)
[2024-10-02] MEDS ORDERED: hydrALAZINE HCL 20 MG/ML VL IV PRN (14:45)
[2024-10-02] MEDS ORDERED: fentaNYL CITRATE 100 MCG/2 ML VL IV PRN (14:45)
--- NOTE | 2024-10-02 15:55 | DVH ---
CLINICAL INDICATION: ORIF RIGHT ANKLE TECHNIQUE: 7 radiographic views of the RIGHT ANKLE were obtained. Comparison: XY R FOOT 3 VIEW XRAY on DOS: 10/02/24, XY R ANKLE 3 VIEW on DOS: 10/01/24 FINDINGS/IMPRESSION: 7 IMAGES OF AN OPEN REDUCTION INTERNAL FIXATION OF THE RIGHT ANKLE ARE OBTAINED. TOTAL FLUORO TIME IS 72.1 SECONDS CUMULATIVE DOSE: 1.31 mGy
--- NOTE | 2024-10-02 15:57 | DVH ---
C-ARM FLUOROSCOPY: PROCEDURE: Right ankle ORIF FLUOROSCOPY TIME: 72.1 seconds CUMULATIVE DOSE: 1.31 mGy
[2024-10-02] MEDS: DOXYCYCLINE 100 MG TAB/CAP PO SCH (21:47)
[2024-10-03] VITALS (8 sets, daily range): BP systolic 115–137; BP diastolic 67–81; PULSE 66–95; RESP 14–19; TEMP 97.5–98.3; O2SAT 18–98
--- NOTE | 2024-10-03 06:34 | DVHINCON2 ---
Date of service: Oct 02, 2024 Reason for Consultation Right bimalleolar ankle fracture dislocation History of Present Illness 73 yo M sp mechanical twist and fall and dislocated his right ankle. No cp/sob/abd pain/nausea/vomiting/diarrhea. Past Medical History list reviewed Past Surgical History lung lobectomy for adenocarcinoma Family History: Patient reports no known family medical history. Allergies: Coded Allergies: NO KNOWN ALLERGIES (Unverified , 10/01/24) Home Meds Reported Medications Aspirin (Aspir-81) 81 Mg Tab, 1 TAB PO DAILY, #30 TAB 5 Refills 10/01/24 Atorvastatin Calcium (Lipitor) 10 Mg Tab, 1 TAB PO QPM, #90 TAB 1 Refill 10/01/24 Hydrochlorothiazide (Hydrochlorothiazide) 25 Mg Tab, 1 TAB PO DAILY, #30 TAB 5 Refills 10/01/24 Valsartan (Diovan) 320 Mg Tab, 160 MG PO DAILY, TAB 10/01/24 Current Medications Current Medications Medications (Trade) Dose Ordered Sig/Luther Route PRN Reason Start Time Stop Time Status Last Admin Doxycycline Monohydrate (Vibramycin Tablet) 100 mg Q12HR PO 10/02/24 22:00 10/02/24 21:47 Cefazolin Sodium/ Dextrose 50 ml @ 50 mls/hr Q8HR IV 10/02/24 14:00 10/03/24 06:59 10/03/24 05:43 Pantoprazole Sodium (Protonix) 40 mg DAILY IV 10/03/24 10:00 Ondansetron HCl (Zofran) 4 mg ONCE PRN IV NAUSEA / VOMITING 10/02/24 14:45 10/02/24 14:47 DC Naloxone HCl (Narcan) 0.4 mg Q10M PRN IV NARCOTIC REVERSAL 10/02/24 14:45 10/02/24 15:06 DC Flumazenil (Romazicon Injection) 0.2 mg ONCE PRN IV BENZODIAZEPINE REVERSAL 10/02/24 14:45 10/02/24 14:47 DC Hydralazine HCl (Apresoline Injection) 5 mg Q10M PRN IV SBP>160 10/02/24 14:45 10/02/24 15:36 DC Ephedrine Sulfate (ePHEDrine SULFATE) 10 mg Q10M PRN IV SBP LESS THAN 90 10/02/24 14:45 10/02/24 15:26 DC Fentanyl Citrate 25 mcg Q1HP PRN IV BREAKTHROUGH PAIN (7-10) 10/02/24 14:45 10/02/24 14:47 DC Hydromorphone HCl (Dilaudid Injection) 0.5 mg Q10M PRN IV SEVERE PAIN (7-10 PAIN SCALE) 10/02/24 14:45 10/02/24 15:26 DC Oxycodone HCl 10 mg ONCE PRN PO MODERATE PAIN (4-6 PAIN SCALE) 10/02/24 14:45 Review of Systems 10 point ROS is neg except per HPI Vital Signs Vital Signs Date Time Temp Pulse Resp B/P (MAP) Pulse Ox O2 Delivery O2 Flow Rate FiO2 10/03/24 05:00 97.6 66 19 115/69 (84) 96 97.6 10/02/24 20:00 Room Air* 0 21 Physical Exam NAD +swelling at ankle skin wound medial aspect +EHL/FHL foot wwp Labs/Diagnostic Data Labs Test 10/02/24 05:10 10/01/24 19:29 10/01/24 12:02 10/01/24 12:00 Range/Units White Blood Count 9.5 4.4-10.8 10^3/uL Red Blood Count 4.24 L 4.5-5.90 10^6/uL Hemoglobin 12.8 L 13.5-17.5 g/dL Hematocrit 38.2 L 41.0-53.0 % Mean Corpuscular Volume 89.9 80.0-100.0 fL Mean Corpuscular Hemoglobin 30.3 28.0-32.0 pg Mean Corpuscular Hemoglobin Concent 33.7 32.0-36.0 g/dL Red Cell Distribution Width 14.8 H 11.8-14.3 % Platelet Count 108 L 140-450 10^3/uL Mean Platelet Volume 11.1 H 6.9-10.8 fL Neutrophils (%) (Auto) 69.8 37.0-80.0 % Lymphocytes (%) (Auto) 22.6 10.0-50.0 % Monocytes (%) (Auto) 6.7 0.0-12.0 % Eosinophils (%) (Auto) 0.7 0.0-7.0 % Basophils (%) (Auto) 0.2 0.0-2.0 % Neutrophils # (Auto) 6.6 1.6-8.6 10 ^3/uL Lymphocytes # (Auto) 2.1 0.4-5.4 10 ^3/uL Monocytes # (Auto) 0.6 0-1.3 10 ^3/uL Eosinophils # (Auto) 0.1 0-0.8 10 ^3/uL Basophils # (Auto) 0 0-0.2 10 ^3/uL Nucleated Red Blood Cells 0.1 % Platelet Estimate Decreased Large Platelets Few Giant Platelets Few Ovalocytes Few Lactate Dehydrogenase 218 120-246 U/L Vitamin B12 Level 914 H 211-911 pg/mL Urine Color Yellow Yellow Urine Clarity Clear Clear Urine pH 5.5 5.0-9.0 Urine Specific [place] 1.015 1.001-1.035 Urine Protein Negative Negative Urine Ketones Negative Negative Urine Blood Negative Negative /uL Urine Nitrite Negative Negative Urine Bilirubin Negative Negative Urine Urobilinogen Normal Negative mg/dL Urine Leukocyte Esterase Negative Negative /uL Urine RBC 5 0 - 3 /hpf Urine WBC <1 0 - 3 /hpf Urine Squamous Epithelial Cells None seen <5 /hpf Urine Bacteria None seen None Seen /hpf Urine Glucose Normal Normal mg/dL Hemoglobin A1c 6.7 H <5.7 % A1C Thyroid Stimulating Hormone (TSH) 1.63 0.55-4.78 uIU/mL Test 10/01/24 11:02 Range/Units Prothrombin Time 12.4 H 9.3-11.8 sec Prothrombin Time INR 1.18 H 0.9-1.15 Activated Partial Thromboplast Time 23.3 L 24.5-34.5 SEC Sodium Level 141 136-145 mmol/L Potassium Level 3.9 3.5-5.1 mmol/L Chloride Level 108 H 98-107 mmol/L Carbon Dioxide Level 28 20-31 mmol/L Anion Gap 5 5-15 Blood Urea Nitrogen 21 9-23 mg/dL Creatinine 0.80 0.700-1.30 mg/dL Glomerular Filtration Rate Calc 92 >90 mL/min BUN/Creatinine Ratio 26.3 H 10.0-20.0 Serum Glucose 120 H 74-106 mg/dL Calcium Level 10.1 8.7-10.4 mg/dL Magnesium Level 1.9 1.6-2.6 mg/dL Total Bilirubin 0.8 0.2-1.0 mg/dL Aspartate Amino Transferase (AST) 63 H 13-40 U/L Alanine Aminotransferase (ALT) 95 H 7-40 U/L Alkaline Phosphatase 76 46-116 U/L Total Protein 6.0 5.7-8.2 g/dL Albumin 4.0 3.2-4.8 g/dL Vitamin D 25-Hydroxy 42.1 30.0-100 ng/mL Hepatitis A Antibody Total Positive H Negative Hepatitis B Surface Antigen Negative Negative Hepatitis B Surface Antibody Negative Negative Hepatitis B Core Total Antibody Negative Negative Hepatitis C Antibody Negative Negative Plan/Recommendation 73 yo M with Right trimalleolar equivalent ankle fracture/dislocation 1. I had a long and thorough discussion with patient and family regarding his condition. Questions for patient answered. RIsks benefits options and alternatives reviewed in depth. Risks include but not exclusive to bleeding infection nerve injury hardware failure nonunion malunion chronic pain blood clots cardiac and pulmonary complications amputation and . Family understands and wishes to proceed with surgery 2. Plan for open reduction internal fixation of right ankle fracture 3. NPO/IVF 4. med clearance Plan discussed with: Patient KRISTIN CHUNG MD Oct 03, 2024 06:34
[2024-10-03 07:56] LABS: Alkaline Phosphatase 79 U/L (46-116); Calcium 9.6 mg/dL (8.7-10.4); Carbon Dioxide 28 mmol/L (20-31); Chloride 107 mmol/L (98-107)
[2024-10-03 07:57] LABS: Albumin 3.8 g/dL (3.2-4.8); Anion Gap 6 (5-15); Aspartate Aminotransferase 34 U/L (13-40); BUN/Creatinine Ratio 17.2 (10.0-20.0); Blood Urea Nitrogen 15 mg/dL (9-23); Potassium 4.3 mmol/L (3.5-5.1); Sodium 141 mmol/L (136-145); Total Protein 5.8 g/dL (5.7-8.2)
[2024-10-03 08:01] LABS: Alanine Aminotransferase 61 U/L (7-40); Glucose 173 mg/dL (74-106)
[2024-10-03 08:10] LABS: Basophils # (auto) 0 10 ^3/uL (0-0.2); Basophils % (auto) 0.1 % (0.0-2.0); Eosinophils # (auto) 0 10 ^3/uL (0-0.8); Hematocrit 38.6 % (41.0-53.0); Hemoglobin 12.8 g/dL (13.5-17.5); Lymphocytes # (auto) 1.2 10 ^3/uL (0.4-5.4); Lymphocytes % (auto) 9.4 % (10.0-50.0); Mean Corpuscular Hemoglobin 30.2 pg (28.0-32.0); Mean Corpuscular Hgb Conc. 33.1 g/dL (32.0-36.0); Mean Corpuscular Volume 91.2 fL (80.0-100.0); Monocytes # (auto) 0.4 10 ^3/uL (0-1.3); Monocytes % (auto) 2.8 % (0.0-12.0); Neutrophils # (auto) 11.7 10 ^3/uL (1.6-8.6); Neutrophils % (auto) 87.7 % (37.0-80.0); Nucleated Red Blood Cells % 0.1 %; Platelet Count (auto) 83 10^3/uL (140-450); Red Blood Cells 4.24 10^6/uL (4.5-5.90); Red Cell Distribution Width 15.1 % (11.8-14.3); White Blood Cell 13.3 10^3/uL (4.4-10.8)
[2024-10-03 08:46] LABS: Bilirubin, Total 0.8 mg/dL (0.2-1.0)
[2024-10-03 09:13] LABS: Anisocytosis Slight
[2024-10-03 09:14] LABS: Platelet Estimate Decreased
[2024-10-03] MEDS: PANTOPRAZOLE 40 MG/10 ML VIAL INJ IV SCH (09:14)
[2024-10-03 12:06] LABS: Anti-Nuclear Antibody Direct Negative (Negative)
--- NOTE | 2024-10-03 15:38 | DVHPN2 ---
Subjective Doing well Ambulating with physical therapy with a walker Pain is well controlled Platelet count is 83 Changes from previous H/P or p: Changes Eyes: No Pain, No Vision change, No Conjunctivae inflammation, No Eyelid inflammation, No Other, No Redness ENT: No Ear pain, No Ear discharge, No Nose pain, No Nose discharge, No Nose congestion, No Mouth pain, No Mouth swelling, No Throat pain, No Throat swelling, No Other Cardiovascular: No Chest Pain, No Palpitations, No Orthopnea, No Paroxysmal Noc. Dyspnea, No Edema, No Lt Headedness, No Other Respiratory: No Cough, No Dry, No Shortness of breath, No SOB with excertion, No Wheezing, No Hemoptysis, No Pleuritic Pain, No Sputum, No Other Gastrointestinal: No Nausea, No Vomiting, No Abdominal Pain, No Diarrhea, No Constipation, No Melena, No Hematochezia, No Other Genitourinary: No Dysuria, No Frequency, No Incontinence, No Hematuria, No Retention, No Other Musculoskeletal: leg pain, foot pain Skin: No Rash, No Lesions, No Jaundice, No Bruising, No Other Objective Vitals Vital Signs Date Time Temp Pulse Resp B/P (MAP) Pulse Ox O2 Delivery O2 Flow Rate FiO2 10/03/24 13:00 97.9 95 14 129/67 (87) 92 97.9 10/03/24 08:00 Room Air* 0 21 Intake/Output Intake and Output 10/03/24 07:00 Intake Total 850 ml Output Total 600 ml Balance 250 ml Intake Oral 700 ml IV Total 150 ml Output Urine Total 600 ml General Appearance: Alert, Oriented X3, Cooperative, No acute distress HEENT: Atraumatic Lungs: Clear to auscultation Cardiovascular: Regular rate, Normal S1, Normal S2 Abdomen: Normal bowel sounds, Soft Extremities: Other (Right Ankle Swelling) Medications Current Medications Medications Dose Ordered Sig/Luther Route Start Time Stop Time Status Last Admin Dose Admin Sodium Chloride 10 ml Q8HR IV 10/01/24 14:00 10/03/24 14:00 10 ML Al Hydrox/Mg Hydrox/Simethicone 30 ml Q6HP PRN PO 10/01/24 09:45 Acetaminophen 650 mg Q6HP PRN PO 10/01/24 09:45 10/01/24 11:30 650 MG Temazepam 15 mg QHSP PRN PO 10/01/24 09:45 Acetaminophen/ Hydrocodone Bitart 1 tab Q4HP PRN PO 10/01/24 09:45 Ondansetron HCl 4 mg Q4HP PRN IV 10/01/24 09:45 10/02/24 10:38 4 MG Hydromorphone HCl 1 mg Q4HPRN PRN IV 10/01/24 22:30 10/02/24 05:12 1 MG Doxycycline Monohydrate 100 mg Q12HR PO 10/02/24 22:00 10/03/24 09:14 100 MG Pantoprazole Sodium 40 mg DAILY IV 10/03/24 10:00 10/03/24 09:14 40 MG Oxycodone HCl 10 mg ONCE PRN PO 10/02/24 14:45 Laboratory Results Laboratory Tests 10/03/24 07:15 Chemistry Test 10/03/24 07:15 Albumin 3.8 g/dL (3.2-4.8) Calcium Level 9.6 mg/dL (8.7-10.4) Total Protein 5.8 g/dL (5.7-8.2) LFT Test 10/03/24 07:15 Alanine Aminotransferase (ALT) 61 U/L (7-40) H Alkaline Phosphatase 79 U/L (46-116) Aspartate Amino Transferase (AST) 34 U/L (13-40) Total Bilirubin 0.8 mg/dL (0.2-1.0) Urinalysis Test 10/01/24 12:02 Urine Color Yellow (Yellow) Urine Clarity Clear (Clear) Urine pH 5.5 (5.0-9.0) Urine Specific [place] 1.015 (1.001-1.035) Urine Protein Negative (Negative) Urine Ketones Negative (Negative) Urine Blood Negative /uL (Negative) Urine Nitrite Negative (Negative) Urine Bilirubin Negative (Negative) Urine Urobilinogen Normal mg/dL (Negative) Urine Leukocyte Esterase Negative /uL (Negative) Urine RBC 5 /hpf (0 - 3) Urine WBC <1 /hpf (0 - 3) Urine Squamous Epithelial Cells None seen /hpf (<5) Urine Bacteria None seen /hpf (None Seen) Urine Glucose Normal mg/dL (Normal) Assessment/Plan Assessment/Plan Right ankle bimalleolar fracture status post surgery Thrombocytopenia Transaminitis Hypertension Type 2 diabetes Leukocytosis Bilateral axillary lymphadenopathy Right lower lobe lung atelectasis and pneumonia possibly Gram-negative versus aspiration Plan Continue physical therapy Order a walker for home Continue IV doxycycline for the pneumonia Incentive spirometry Pain control with [place] as needed Plan discussed with: Patient My Orders Orders - TUNDE VILLA MD Procedure Category Date Status Time * Floor Installer CONS 10/03/24 Transmitted Consult 09:53 Date of Service: Oct 03, 2024 Billing Provider: TUNDE VILLA MD Common Visit Codes: [id number] INP/OBS CARE(HIGH) TUNDE VILLA MD Oct 03, 2024 15:38
[2024-10-04 01:00] VITALS: BP 122/69; PULSE 73; RESP 18; TEMP 97.9; O2SAT 97
[2024-10-04 05:00] VITALS: BP 122/77; PULSE 75; RESP 18; TEMP 97.9; O2SAT 95
[2024-10-04 05:51] LABS: Basophils # (auto) 0 10 ^3/uL (0-0.2); Eosinophils # (auto) 0 10 ^3/uL (0-0.8); Hematocrit 33.8 % (41.0-53.0); Hemoglobin 11.3 g/dL (13.5-17.5); Lymphocytes # (auto) 1.5 10 ^3/uL (0.4-5.4); Lymphocytes % (auto) 14.3 % (10.0-50.0); Mean Corpuscular Hemoglobin 30.3 pg (28.0-32.0); Mean Corpuscular Hgb Conc. 33.5 g/dL (32.0-36.0); Mean Corpuscular Volume 90.5 fL (80.0-100.0); Monocytes # (auto) 0.8 10 ^3/uL (0-1.3); Monocytes % (auto) 7.5 % (0.0-12.0); Neutrophils % (auto) 78.2 % (37.0-80.0); Red Blood Cells 3.73 10^6/uL (4.5-5.90); Red Cell Distribution Width 15.1 % (11.8-14.3); White Blood Cell 10.2 10^3/uL (4.4-10.8)
[2024-10-04 07:00] LABS: Platelet Count (auto) 119 10^3/uL (140-450); Platelet Estimate Decreased
[2024-10-04 07:07] VITALS: BP 137/78; PULSE 87; RESP 20; TEMP 98; O2SAT 99
[2024-10-04 08:00] VITALS: PULSE 72; RESP 17; O2SAT 98
[2024-10-04 09:00] VITALS: BP 128/76; PULSE 71; RESP 18; TEMP 98; O2SAT 95
[2024-10-04 09:06] LABS: CCP IgG/IgA Antibody 3 units (0-19)
--- NOTE | 2024-10-04 12:38 | DVH ---
EXAM: CT HEAD WITHOUT CONTRAST INDICATION: post fall at home TECHNIQUE: CT of the head without intravenous contrast. Radiation Dose : 1. Head: CT Dose: CTDI volume is 56.11 mGy. Dose-length product is 899.4 mGy*cm The dose indicators for CT are the volume Computed Tomography (CT) Dose Index (CTDIvol) and the Dose Length Product (DLP), and are measured in units of mGy and mGy-cm, respectively. These indicators are not patient dose, but values generated from the CT scanner acquisition factors. The report includes radiation exposure data for exposures received during this examination. COMPARISON: CT CHEST WITH CONTRAST on DOS: 10/02/24, CT CHEST WITHOUT CONTRAST on DOS: 10/01/24 FINDINGS: There is no evidence of acute intracranial hemorrhage, extra-axial collection, mass effect, midline s hift, herniation or hydrocephalus. The ventricles, sulci and cisterns are age appropriate. The buckner-white differentiation is intact. The visualized paranasal sinuses and mastoid air cells are clear. The surrounding soft tissues and osseous structures are unremarkable. IMPRESSION: No acute intracranial abnormality. Radiation optimization: All CT scans at this facility use at least one of these dose optimization eliana hniques: automated exposure control mA and/or kV adjustment per patient size (includes targeted exam s where dose is matched to clinical indication) or iterative reconstruction.
--- NOTE | 2024-10-04 12:39 | DVH ---
EXAM: CT CERVICAL WITHOUT CONTRAST HISTORY: post fall at home COMPARISON: CT CHEST WITH CONTRAST on DOS: 10/02/24, CT CHEST WITHOUT CONTRAST on DOS: 10/01/24 CTDIvol 25.1 mGy, DLP 526.54 mGy*cm. TECHNIQUE: Multiple axial CT images of the spine were obtained using bone algorithm. Axial and coron al reformatting was done. Bone and soft tissue windows were reviewed. FINDINGS: No CT evidence of definite acute fracture, spinal dislocation, or significant appearing acute subluxa tion is seen. The visualized paraspinal soft tissues are grossly unremarkable. Mild multilevel degenerative changes of the spine most prominent at C4-C5, C5-C6 and C6-C7 where ther e is prominent disc uncinate hypertrophy. IMPRESSION: No definite CT evidence of acute fracture or dislocation of the bony cervical spine.
[2024-10-04 13:00] VITALS: BP 137/78; PULSE 87; RESP 18; TEMP 98; O2SAT 96
[2024-10-04] MEDS: ENOXAPARIN SOD 40 MG/0.4 ML SYRINGE SC ONE (13:35)
[2024-10-04] MEDS ORDERED: KETAMINE 50mg/ML 1ml syringe IM ONE (13:54)
--- NOTE | 2024-10-04 14:15 | DVHDS2 ---
Discharge Summary Date of Admission Oct 01, 2024 at 09:41 Date of Discharge: Oct 04, 2024 Labs/Diagnostic Data: Laboratory Results Test 10/04/24 04:41 10/03/24 07:15 10/02/24 05:10 10/01/24 19:29 White Blood Count 10.2 10^3/uL (4.4-10.8) Red Blood Count 3.73 10^6/uL (4.5-5.90) Hemoglobin 11.3 g/dL (13.5-17.5) Hematocrit 33.8 % (41.0-53.0) Mean Corpuscular Volume 90.5 fL (80.0-100.0) Mean Corpuscular Hemoglobin 30.3 pg (28.0-32.0) Mean Corpuscular Hemoglobin Concent 33.5 g/dL (32.0-36.0) Red Cell Distribution Width 15.1 % (11.8-14.3) Platelet Count 119 10^3/uL (140-450) Mean Platelet Volume 11.6 fL (6.9-10.8) Neutrophils (%) (Auto) 78.2 % (37.0-80.0) Lymphocytes (%) (Auto) 14.3 % (10.0-50.0) Monocytes (%) (Auto) 7.5 % (0.0-12.0) Eosinophils (%) (Auto) 0.0 % (0.0-7.0) Basophils (%) (Auto) 0.0 % (0.0-2.0) Neutrophils # (Auto) 8.0 10 ^3/uL (1.6-8.6) Lymphocytes # (Auto) 1.5 10 ^3/uL (0.4-5.4) Monocytes # (Auto) 0.8 10 ^3/uL (0-1.3) Eosinophils # (Auto) 0 10 ^3/uL (0-0.8) Basophils # (Auto) 0 10 ^3/uL (0-0.2) Nucleated Red Blood Cells 0.0 % Platelet Estimate Decreased Anisocytosis (manual) Slight Sodium Level 141 mmol/L (136-145) Potassium Level 4.3 mmol/L (3.5-5.1) Chloride Level 107 mmol/L (98-107) Carbon Dioxide Level 28 mmol/L (20-31) Anion Gap 6 (5-15) Blood Urea Nitrogen 15 mg/dL (9-23) Creatinine 0.87 mg/dL (0.700-1.30) Glomerular Filtration Rate Calc 90 mL/min (>90) BUN/Creatinine Ratio 17.2 (10.0-20.0) Serum Glucose 173 mg/dL (74-106) Calcium Level 9.6 mg/dL (8.7-10.4) Total Bilirubin 0.8 mg/dL (0.2-1.0) Aspartate Amino Transferase (AST) 34 U/L (13-40) Alanine Aminotransferase (ALT) 61 U/L (7-40) Alkaline Phosphatase 79 U/L (46-116) Total Protein 5.8 g/dL (5.7-8.2) Albumin 3.8 g/dL (3.2-4.8) Large Platelets Few Giant Platelets Few Ovalocytes Few Lactate Dehydrogenase 218 U/L (120-246) Vitamin B12 Level 914 pg/mL (211-911) Thyroxine (T4) 9.0 ug/dL (4.5-12.0) Ceruloplasmin 16.0 mg/dL (16.0-31.0) Anti-Cyclic Citrullinated Peptide 3 units (0-19) Anti-Nuclear Antibody Screen Negative (Negative) Test 10/01/24 12:02 10/01/24 12:00 10/01/24 11:02 Urine Color Yellow (Yellow) Urine Clarity Clear (Clear) Urine pH 5.5 (5.0-9.0) Urine Specific [place] 1.015 (1.001-1.035) Urine Protein Negative (Negative) Urine Ketones Negative (Negative) Urine Blood Negative /uL (Negative) Urine Nitrite Negative (Negative) Urine Bilirubin Negative (Negative) Urine Urobilinogen Normal mg/dL (Negative) Urine Leukocyte Esterase Negative /uL (Negative) Urine RBC 5 /hpf (0 - 3) Urine WBC <1 /hpf (0 - 3) Urine Squamous Epithelial Cells None seen /hpf (<5) Urine Bacteria None seen /hpf (None Seen) Urine Glucose Normal mg/dL (Normal) Hemoglobin A1c 6.7 % A1C (<5.7) Thyroid Stimulating Hormone (TSH) 1.63 uIU/mL (0.55-4.78) Prothrombin Time 12.4 sec (9.3-11.8) Prothrombin Time INR 1.18 (0.9-1.15) Activated Partial Thromboplast Time 23.3 SEC (24.5-34.5) Magnesium Level 1.9 mg/dL (1.6-2.6) Vitamin D 25-Hydroxy 42.1 ng/mL (30.0-100) Hepatitis A Antibody Total Positive (Negative) Hepatitis B Surface Antigen Negative (Negative) Hepatitis B Surface Antibody Negative (Negative) Hepatitis B Core Total Antibody Negative (Negative) Hepatitis C Antibody Negative (Negative) Other Laboratory Tests 10/04/24 04:41 10/03/24 07:15 Brief Hx & Hospital Course: 73-year-old male was admitted after a fall which resulted in a bimalleolar fracture of the right ankle Evaluation preoperatively showed thrombocytopenia and transaminitis and also bilateral axillary lymphadenopathy The patient has a 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 Because he was not sure if he hit his head when he fell we also did a CT scan of the head and cervical spine which were negative At this time he is stable for discharge Follow up with Orthopedic surgery as an outpatient as scheduled Blood pressure was slightly low and therefore he was not given his blood pressure medication Resume the blood pressure medication at home Hold the Lipitor until he is seen by his primary care physician Final diagnoses: Right ankle bimalleolar fracture status post surgery ORIF Thrombocytopenia Transaminitis Hypertension Type 2 diabetes Leukocytosis Bilateral axillary lymphadenopathy Right lower lobe lung atelectasis and pneumonia possibly Gram-negative versus aspiration Condition at Discharge: Stable Final Diagnosis/Problems List R Bi-Malular Fx s/p orif right ankle HTN Fatty liver Thrombocytopenia Transaminitis Bilateral axillary lymphadenopathy Right lower lobe lung atelectasis and pneumonia possibly Gram-negative versus aspiration Discharge Disposition: Home SNF Discharge Will this Physician continue t: No Discharge Instruct/Medications Diet: Cardiac 2g Na,low cholest Activity: Light activity Activity comment: toe touch while walking till f/u with dr. lyons Follow Up/Referral: Dr. Lyons 2 weeks Medications: Same home meds Hold Lipitor until seen by PCP Discharge Statement: "Patient was advised to return to the ER or call 911 if any headaches, dizziness, shortness of breath, chest pain, abdominal pain, bleeding, fevers, or worsening of medical condition. Patient was counseled about treatment plan, medications, possible side effects, patientverbalized understanding. All questions were answered to the best of my ability. This discharge took greater then 30 minutes in planning, reviewing documentation, counseling the patient, and discussing with other team members." ASSESSMENT ASSESSMENT Assessment R Bi-Malular Fx s/p orif right ankle HTN Fatty liver Thrombocytopenia Transaminitis Bilateral axillary lymphadenopathy Right lower lobe lung atelectasis and pneumonia possibly Gram-negative versus aspiration Date of Service: Oct 04, 2024 Billing Provider: TUNDE VILLA MD Common Visit Codes: [id number] DISCH DAY >30min TUNDE VILLA MD Oct 04, 2024 14:15
[2024-10-04 22:05] LABS: Anticardiolipin IgG Antibody <9 GPL U/mL (0-14); Anticardiolipin IgM Antibody <9 MPL U/mL (0-12)
--- NOTE | 2024-10-05 16:00 | DVHOP2 ---
Operative Report - 2 Report Details Date: 10/02/24 Preop Diagnosis: Right equivalent trimalleolar ankle fracture/ dislocation Postop Diagnosis: Right equivalent trimalleolar ankle fracture/ dislocation Surgeon: Beny Lyons MD Anesthesiologist: Otto VALDEZ Anesthesia: Regional Implant: Arthrex Distal fibula plate with syndesmotic tightrope/ medial mal screws/ locking and nonlocking screws Consent: The patient was informed of the risks and benefits of the procedure. These include but are not limited to complications of anesthesia, postoperative infection, incomplete relief of symptoms, recurrence of symptoms, damage to blood vessels, nerves and tendons, deep venous thrombosis, pulmonary embolism and possible need for repeat surgery in the future. Estimated Blood Loss: 5 cc Name of Procedure Performed 1. open reduction internal fixation of right trimalleolar equivalent ankle fracture/dislocation, 2. Deltoid ligament repair, 3. Intraop fluoro Procedure Details Procedure Details: Risks associated with anesthesia, infection, damage to nerves and blood vessels, and bleeding or blood clots. Problems after ankle fracture surgery include ankle joint stiffness, weakness, need for further surgery and arthritis. Possible complications after ankle fracture surgery include infection and problems with healing. PROCEDURE: After all potential complications and risks as well as risks and benefits of the above-mentioned procedure was discussed at length with the patient and family, informed consent was obtained. The lower extremity was then confirmed with the operating surgeon, the patient, the nursing staff and Department of Anesthesia. The patient was then transferred to preoperative area in the Operative Suite and placed on the operating room table in supine position. At this time, the anesthesia was performed. All bony prominences were well padded at this time. A nonsterile tourniquet was placed on the right upper thigh of the patient. This was then removed and the right lower extremity was sterilely prepped and draped in the usual sterile fashion. The right lower extremity was then elevated and exsanguinated using Esmarch and tourniquet was then placed to 250 mmHg. Next, after all bony and soft tissue landmarks were identified, a 6 cm lo ngitudinal incision was made directly over the lateral mal fracture on the right ankle. A sharp dissection was carefully taken down to the level of bone taking care to protect the neurovascular structures. Once the bone was reached, the fractured site was identified. The bony ends were then opened and divided of all hematoma as well as excess periosteum within the fracture site. Forelvira shafferral side he had a posterior comminution with a distal transverse fracture. With manual traction and manipulation with bone reduction clamps we were able to reduce patient fracture. Intraoperative fluoroscopy confirmed reduction. A Fibula plate was then selected for instrumentation with nonlocking/locking through the plate to reduce posterior butterfly fragment. Next Fluorsocpy was used to visualize the hardware placement as well as the fracture reduction appeared to be in good anatomic position, all hardware was in good position. Attention was then directed towards the medial aspect of the ankle. Again, after all bony and soft tissue landmarks were identified, a 4 cm longitudinal incision was made directly over the medial malleolus. Again, the di ssection was carefully taken down the level of the fracture site. The medial malleolus was placed in reduced position and held in place with a 1.25 mm K- wire. Next, the 2.5 mm drill bed was then used to sequentially drill holes to full depth and 4.0 cancellous screws were placed in each, each with a 40 mm screw. We then placed a syndesmotic tightrope as patient had opening of synde smosis under live fluoro. Deltoid ligament repaired with fiberwire. These appeared to hold the fracture site securely in an anatomic position. Again, Fluoro scan was brought in to confirm placement of the screws. They were in good overall position and there was no lateralization of the joint. At this time, each wound was copiously irrigated and suctioned dry. The wounds were then c losed using #2-0 Vicryl suture in subcutaneous fashion followed by 3-0 nylon on the skin. A sterile dressing was applied consistent with Adaptic, 4x4s, Kerlix, and Webril. An ankle splint was then placed on the right lower extremity. The patient was transferred back to the [facility] and to the Postanesthetic Care Unit. The patient tolerated the procedure well. There were no c omplications. Condition Good Disposition Still a Patient BENY LYONS MD Oct 05, 2024 16:00
== END 2024-10-04 13:55 | disposition home health service (06) | DRG 492 ==
LOC: ER 08:33 → OVERFLOW 09:41 → EAST 10:22
PROVIDERS: ADMIT Internal Medicine; ATTEND Internal Medicine Geriatric Medicine
PROC: 0QSG04Z Reposition Right Tibia with Internal Fixation Device, Open Approach (ICD-10-PCS; 2024-10-02)
PROC: 0MQQ0ZZ Repair Right Ankle Bursa and Ligament, Open Approach (ICD-10-PCS; 2024-10-02)
PROC: 0QSJ04Z Reposition Right Fibula with Internal Fixation Device, Open Approach (ICD-10-PCS; principal; 2024-10-02 12:58)
DX: S82.851A Displaced trimalleolar fracture of right lower leg, initial encounter for closed fracture (principal); J15.69 Pneumonia due to other Gram-negative bacteria; J69.0 Pneumonitis due to inhalation of food and vomit; J98.11 Atelectasis; I10 Essential (primary) hypertension; I08.2 Rheumatic disorders of both aortic and tricuspid valves; D69.6 Thrombocytopenia, unspecified; E78.00 Pure hypercholesterolemia, unspecified; E11.9 Type 2 diabetes mellitus without complications; K76.0 Fatty (change of) liver, not elsewhere classified; W00.0XXA Fall on same level due to ice and snow, initial encounter; Z85.118 Personal history of other malignant neoplasm of bronchus and lung; Y93.89 Activity, other specified; Y92.89 Other specified places as the place of occurrence of the external cause; Y99.8 Other external cause status
CPT/HCPCS: 36415; 70450; 71046; 71250; 71260; 72125; 72170; 73600; 73610; 73630; 76000; 76705; 80053; 81001; 82306; 82390; 82607; 83036; 83615; 83735; 84436; 84443; 85025; 85060; 85610; 85730; 86038; 86147; 86200; 86704; 86706; 86708; 86803; 86850; 86900; 86901; 87340; 93306; 97110; 97116; 97163; 97530; G0378; J0131; J1100; J1885; J2405; J2470; J2704; J3490